=== PATIENT | male | born 1940 | race Caucasian/White ===

== ENCOUNTER 2019-01-06 16:53 | Inpatient (IN) | payer MEDICARE, OTHER ==
[~2019-01-06] VITALS: Ht 185.4 cm; Wt 65.8 kg
[~2019-01-06 16:53] MED LIST: ACET325T33 PO; ALFU10TA2 PO; AMLO2.5T78 PO; APIX2.5T PO; ATOR40TA68 PO; DORZ10DR5 BOTH EYES; ESCI20TA PO; ESCI20TA38 PO; FENO145T25 PO; FINA5TAB4 PO; FURO40TA4 PO; LEVO100T8 PO; MIRT15TA5 PO; MULT-552 PO; PANT40TA4 PO; REPA2TAB23 PO; SITA50TA2 PO; TRAV4OP25 BOTH EYES
[2019-01-06] MEDS ORDERED: SOD CHLORIDE 0.9% 1,000 ML IV STA (21:13)
[2019-01-07 03:23] VITALS: Ht 185.4 cm; Wt 65.8 kg
[2019-01-07 03:29] VITALS: BP 148/67; PULSE 70; RESP 16
[2019-01-07] MEDS ORDERED: DIPHENOXYLATE/ATROPINE TAB PO PRN (04:00)
[2019-01-07] MEDS ORDERED: NACL 0.9% 3 ML SYG IV SCH (04:00)
[2019-01-07] MEDS ORDERED: HYDROmorphONE 0.5 MG/0.5 ML SYG IV PRN (04:00)
[2019-01-07] MEDS ORDERED: HYDROCODONE/APAP (5/325) TAB PO PRN ×2 (04:00)
[2019-01-07] MEDS ORDERED: ACETAMINOPHEN 325 MG TAB PO PRN ×2 (04:00)
[2019-01-07] MEDS ORDERED: ONDANSETRON 4 MG INJ IV PRN ×2 (04:00)
[2019-01-07] MEDS ORDERED: ZOLPIDEM 5 MG TAB PO PRN (04:00)
[2019-01-07] MEDS: PANTOPRAZOLE (EC) 40 MG TAB PO SCH (05:39)
[2019-01-07] MEDS: SOD CHLORIDE 0.9% 1,000 ML IV SCH ×3 (05:40→23:53)
[2019-01-07] MEDS ORDERED: PANTOPRAZOLE (EC) 40 MG TAB PO SCH (07:00)
[2019-01-07] MEDS: INSULIN ASPART [NOVOLOG] 3 ML PEN SC SCH ×4 (08:00→20:35)
[2019-01-07 08:10] VITALS: BP 128/60; PULSE 56; RESP 18
[2019-01-07] MEDS: ESCITALOPRAM 10 MG TAB PO SCH (08:11)
[2019-01-07] MEDS: REPAGLINIDE 1 MG TAB PO SCH ×3 (08:11→20:31)
[2019-01-07] MEDS: MULTIVITAMINS THERAPEUTIC TAB PO SCH (08:12)
[2019-01-07] MEDS: FENOFIBRATE 145 MG TAB PO SCH (08:12)
[2019-01-07] MEDS: LINAGLIPTIN 5 MG TABLET PO SCH (08:12)
[2019-01-07] MEDS: AMLODIPINE 2.5 MG TAB PO SCH (08:13)
[2019-01-07] MEDS: HEPARIN 5,000 UNIT/1 ML VIAL SC SCH ×2 (08:17→20:34)
[2019-01-07] MEDS: DORZOLAMIDE 2% 10 ML OPH BOTH EYES SCH ×3 (09:00→20:32)
[2019-01-07] MEDS ORDERED: LACTATED RINGER'S 500 ML IV ONE ×2 (13:30→15:30)
[2019-01-07] MEDS: SACCHAROMYCES BOULARDII 250 MG CAP PO SCH ×2 (13:30→20:31)
[2019-01-07 14:37] VITALS: BP 118/57; PULSE 65; RESP 16
[2019-01-07] MEDS: FINASTERIDE 5 MG TAB PO SCH (16:41)
[2019-01-07] MEDS ORDERED: CIPROFLOXACIN 500 MG TAB PO ONE (18:30)
[2019-01-07 19:51] VITALS: BP 138/63; PULSE 62; RESP 16
[2019-01-07] MEDS: ATORVASTATIN 40 MG TAB PO SCH (20:31)
[2019-01-07] MEDS: MIRTAZAPINE 15 MG TAB PO SCH (20:31)
[2019-01-07] MEDS: ALFUZOSIN (SR) 10 MG TAB PO SCH (20:31)
[2019-01-07] MEDS: LATANOPROST 0.005% 2.5 ML OPH BOTH EYES SCH (20:32)
[2019-01-07] MEDS ORDERED: TRAVOPROST 0.004% 2.5 ML OPH BOTH EYES SCH (21:00)
[2019-01-08 01:48] VITALS: BP 116/56; PULSE 62; RESP 16
[2019-01-08] MEDS: SOD CHLORIDE 0.9% 1,000 ML IV SCH ×3 (03:01→12:48)
[2019-01-08] MEDS: LEVOTHYROXINE 100 MCG TAB PO SCH (05:28)
[2019-01-08] MEDS: PANTOPRAZOLE (EC) 40 MG TAB PO SCH (05:28)
[2019-01-08] MEDS: INSULIN ASPART [NOVOLOG] 3 ML PEN SC SCH ×4 (08:00→21:00)
[2019-01-08] MEDS: DORZOLAMIDE 2% 10 ML OPH BOTH EYES SCH ×3 (08:20→23:03)
[2019-01-08] MEDS: ESCITALOPRAM 10 MG TAB PO SCH (08:21)
[2019-01-08] MEDS: LINAGLIPTIN 5 MG TABLET PO SCH (08:21)
[2019-01-08] MEDS: REPAGLINIDE 1 MG TAB PO SCH ×3 (08:21→21:25)
[2019-01-08] MEDS: MULTIVITAMINS THERAPEUTIC TAB PO SCH (08:21)
[2019-01-08] MEDS: FENOFIBRATE 145 MG TAB PO SCH (08:21)
[2019-01-08] MEDS: SACCHAROMYCES BOULARDII 250 MG CAP PO SCH ×2 (08:21→21:24)
[2019-01-08] MEDS: FINASTERIDE 5 MG TAB PO SCH (08:21)
[2019-01-08] MEDS: HEPARIN 5,000 UNIT/1 ML VIAL SC SCH ×2 (08:28→21:28)
[2019-01-08 08:29] VITALS: BP 141/63; PULSE 63; RESP 18
[2019-01-08] MEDS: AMLODIPINE 2.5 MG TAB PO SCH (08:29)
[2019-01-08] MEDS ORDERED: POTASSIUM CHLORIDE (SR) 20 MEQ TAB PO STA (14:00)
[2019-01-08] MEDS ORDERED: LACTATED RINGER'S 500 ML IV ONE (14:00)
[2019-01-08] MEDS ORDERED: MAGNESIUM SULFATE 4 GM/100 ML 100 ML IVPB ONE (14:00)
[2019-01-08] MEDS ORDERED: PIPER-TAZO 3.375 GM IV (PMX) 100 ML IVPB ONE (14:00)
[2019-01-08] MEDS: CIPROFLOXACIN 500 MG TAB PO SCH (14:25)
[2019-01-08] MEDS: POTASSIUM CHLORIDE 100 ML IVPB SCH ×2 (15:49→23:05)
[2019-01-08 15:51] VITALS: BP 162/73; PULSE 60; RESP 18
[2019-01-08 19:26] VITALS: BP_SYST 146; BP_SYST 147; BP_DIAS 66; PULSE 65; RESP 17
[2019-01-08] MEDS: MIRTAZAPINE 15 MG TAB PO SCH (21:24)
[2019-01-08] MEDS: ALFUZOSIN (SR) 10 MG TAB PO SCH (21:24)
[2019-01-08] MEDS: LATANOPROST 0.005% 2.5 ML OPH BOTH EYES SCH (21:25)
[2019-01-08] MEDS: ATORVASTATIN 40 MG TAB PO SCH (21:25)
[2019-01-09 01:20] VITALS: BP 129/63; PULSE 61; RESP 18
[2019-01-09] MEDS: POTASSIUM CHLORIDE 100 ML IVPB SCH (02:32)
[2019-01-09] MEDS: SOD CHLORIDE 0.9% 1,000 ML IV SCH ×2 (05:53→17:45)
[2019-01-09] MEDS: PANTOPRAZOLE (EC) 40 MG TAB PO SCH (06:43)
[2019-01-09] MEDS: CIPROFLOXACIN 500 MG TAB PO SCH (06:43)
[2019-01-09] MEDS: LEVOTHYROXINE 100 MCG TAB PO SCH (06:43)
[2019-01-09 07:54] VITALS: BP 129/63; PULSE 64; RESP 18
[2019-01-09] MEDS: INSULIN ASPART [NOVOLOG] 3 ML PEN SC SCH ×4 (08:00→20:52)
[2019-01-09] MEDS: MULTIVITAMINS THERAPEUTIC TAB PO SCH (09:13)
[2019-01-09] MEDS: AMLODIPINE 2.5 MG TAB PO SCH (09:13)
[2019-01-09] MEDS: REPAGLINIDE 1 MG TAB PO SCH ×3 (09:13→20:51)
[2019-01-09] MEDS: FINASTERIDE 5 MG TAB PO SCH (09:14)
[2019-01-09] MEDS: ESCITALOPRAM 10 MG TAB PO SCH (09:14)
[2019-01-09] MEDS: FENOFIBRATE 145 MG TAB PO SCH (09:14)
[2019-01-09] MEDS: LINAGLIPTIN 5 MG TABLET PO SCH (09:14)
[2019-01-09] MEDS: SACCHAROMYCES BOULARDII 250 MG CAP PO SCH ×2 (09:14→20:51)
[2019-01-09] MEDS: DORZOLAMIDE 2% 10 ML OPH BOTH EYES SCH ×3 (09:16→20:51)
[2019-01-09] MEDS: HEPARIN 5,000 UNIT/1 ML VIAL SC SCH ×2 (09:16→20:54)
[2019-01-09] MEDS ORDERED: LACTATED RINGER'S 500 ML IV ONE (14:00)
[2019-01-09] MEDS: CEFTRIAXONE 1 GM/50 ML (PMX) 50 ML IVPB SCH (15:44)
[2019-01-09 16:07] VITALS: BP 130/78; PULSE 60; RESP 18
[2019-01-09 20:28] VITALS: BP 147/65; PULSE 80; RESP 18
[2019-01-09] MEDS: MIRTAZAPINE 15 MG TAB PO SCH (20:51)
[2019-01-09] MEDS: ALFUZOSIN (SR) 10 MG TAB PO SCH (20:51)
[2019-01-09] MEDS: LATANOPROST 0.005% 2.5 ML OPH BOTH EYES SCH (20:51)
[2019-01-09] MEDS: ATORVASTATIN 40 MG TAB PO SCH (20:51)
[2019-01-10] MEDS: SOD CHLORIDE 0.9% 1,000 ML IV SCH (01:53)
[2019-01-10] MEDS: LEVOTHYROXINE 100 MCG TAB PO SCH (06:46)
[2019-01-10] MEDS: PANTOPRAZOLE (EC) 40 MG TAB PO SCH (06:46)
[2019-01-10 07:42] VITALS: BP 161/67; PULSE 66; RESP 18
[2019-01-10] MEDS: INSULIN ASPART [NOVOLOG] 3 ML PEN SC SCH ×4 (08:00→20:45)
[2019-01-10] MEDS: DORZOLAMIDE 2% 10 ML OPH BOTH EYES SCH ×3 (09:15→20:43)
[2019-01-10] MEDS: AMLODIPINE 2.5 MG TAB PO SCH (09:16)
[2019-01-10] MEDS: MULTIVITAMINS THERAPEUTIC TAB PO SCH (09:16)
[2019-01-10] MEDS: REPAGLINIDE 1 MG TAB PO SCH ×3 (09:16→20:39)
[2019-01-10] MEDS: ESCITALOPRAM 10 MG TAB PO SCH (09:17)
[2019-01-10] MEDS: FINASTERIDE 5 MG TAB PO SCH (09:17)
[2019-01-10] MEDS: SACCHAROMYCES BOULARDII 250 MG CAP PO SCH ×2 (09:17→20:39)
[2019-01-10] MEDS: LINAGLIPTIN 5 MG TABLET PO SCH (09:17)
[2019-01-10] MEDS: FENOFIBRATE 145 MG TAB PO SCH (09:17)
[2019-01-10] MEDS: HEPARIN 5,000 UNIT/1 ML VIAL SC SCH ×2 (09:19→20:43)
[2019-01-10] MEDS: CEFTRIAXONE 1 GM/50 ML (PMX) 50 ML IVPB SCH (13:46)
[2019-01-10 13:57] VITALS: BP 155/70; PULSE 63; RESP 19
[2019-01-10 20:03] VITALS: BP 129/81; PULSE 66; RESP 18
[2019-01-10] MEDS: ATORVASTATIN 40 MG TAB PO SCH (20:39)
[2019-01-10] MEDS: MIRTAZAPINE 15 MG TAB PO SCH (20:39)
[2019-01-10] MEDS: ALFUZOSIN (SR) 10 MG TAB PO SCH (20:39)
[2019-01-10] MEDS: LATANOPROST 0.005% 2.5 ML OPH BOTH EYES SCH (23:47)
[2019-01-11 02:06] VITALS: BP 138/68; PULSE 61; RESP 19
[2019-01-11] MEDS: LEVOTHYROXINE 100 MCG TAB PO SCH (05:40)
[2019-01-11] MEDS: PANTOPRAZOLE (EC) 40 MG TAB PO SCH (05:40)
[2019-01-11 07:34] VITALS: BP 117/88; PULSE 71; RESP 19
[2019-01-11] MEDS: INSULIN ASPART [NOVOLOG] 3 ML PEN SC SCH ×4 (08:00→21:18)
[2019-01-11] MEDS: ESCITALOPRAM 10 MG TAB PO SCH (09:25)
[2019-01-11] MEDS: SACCHAROMYCES BOULARDII 250 MG CAP PO SCH ×2 (09:25→21:10)
[2019-01-11] MEDS: MULTIVITAMINS THERAPEUTIC TAB PO SCH (09:25)
[2019-01-11] MEDS: LINAGLIPTIN 5 MG TABLET PO SCH (09:26)
[2019-01-11] MEDS: REPAGLINIDE 1 MG TAB PO SCH ×3 (09:26→21:13)
[2019-01-11] MEDS: HEPARIN 5,000 UNIT/1 ML VIAL SC SCH (09:26)
[2019-01-11] MEDS: AMLODIPINE 2.5 MG TAB PO SCH (09:27)
[2019-01-11] MEDS: DORZOLAMIDE 2% 10 ML OPH BOTH EYES SCH ×3 (09:27→21:14)
[2019-01-11] MEDS: FENOFIBRATE 145 MG TAB PO SCH (09:28)
[2019-01-11] MEDS: FINASTERIDE 5 MG TAB PO SCH (09:28)
[2019-01-11] MEDS: CEFTRIAXONE 1 GM/50 ML (PMX) 50 ML IVPB SCH ×2 (14:14→14:26)
[2019-01-11 14:17] VITALS: BP 167/76; PULSE 65; RESP 18
[2019-01-11 19:48] VITALS: BP 121/57; PULSE 71; RESP 17
[2019-01-11] MEDS: LATANOPROST 0.005% 2.5 ML OPH BOTH EYES SCH (21:00)
[2019-01-11] MEDS: APIXABAN 5 MG TABLET PO SCH (21:10)
[2019-01-11] MEDS: ATORVASTATIN 40 MG TAB PO SCH (21:11)
[2019-01-11] MEDS: MIRTAZAPINE 15 MG TAB PO SCH (21:11)
[2019-01-11] MEDS: ALFUZOSIN (SR) 10 MG TAB PO SCH (21:14)
[2019-01-12 02:18] VITALS: BP 115/57; PULSE 71; RESP 18
[2019-01-12] MEDS: LEVOTHYROXINE 100 MCG TAB PO SCH (05:48)
[2019-01-12] MEDS: PANTOPRAZOLE (EC) 40 MG TAB PO SCH (05:48)
[2019-01-12 07:19] VITALS: BP 137/66; PULSE 70; RESP 18
[2019-01-12] MEDS: INSULIN ASPART [NOVOLOG] 3 ML PEN SC SCH ×4 (08:00→20:27)
[2019-01-12] MEDS: DORZOLAMIDE 2% 10 ML OPH BOTH EYES SCH ×3 (08:25→20:24)
[2019-01-12] MEDS: ESCITALOPRAM 10 MG TAB PO SCH (08:26)
[2019-01-12] MEDS: APIXABAN 5 MG TABLET PO SCH ×2 (08:26→20:25)
[2019-01-12] MEDS: FENOFIBRATE 145 MG TAB PO SCH (08:27)
[2019-01-12] MEDS: AMLODIPINE 2.5 MG TAB PO SCH (08:27)
[2019-01-12] MEDS: LINAGLIPTIN 5 MG TABLET PO SCH (08:28)
[2019-01-12] MEDS: FINASTERIDE 5 MG TAB PO SCH (08:28)
[2019-01-12] MEDS: MULTIVITAMINS THERAPEUTIC TAB PO SCH (08:32)
[2019-01-12] MEDS: SACCHAROMYCES BOULARDII 250 MG CAP PO SCH ×2 (08:32→20:25)
[2019-01-12] MEDS: REPAGLINIDE 1 MG TAB PO SCH (08:32)
[2019-01-12] MEDS: REPAGLINIDE 2 MG TAB PO SCH ×2 (13:51→20:25)
[2019-01-12] MEDS: CEFTRIAXONE 1 GM/50 ML (PMX) 50 ML IVPB SCH (13:52)
[2019-01-12 14:24] VITALS: BP 152/68; PULSE 65; RESP 18
[2019-01-12 20:00] VITALS: BP 158/74; PULSE 65; RESP 16
[2019-01-12] MEDS: ALFUZOSIN (SR) 10 MG TAB PO SCH (20:24)
[2019-01-12] MEDS: LATANOPROST 0.005% 2.5 ML OPH BOTH EYES SCH (20:24)
[2019-01-12] MEDS: MIRTAZAPINE 15 MG TAB PO SCH (20:25)
[2019-01-12] MEDS: ATORVASTATIN 40 MG TAB PO SCH (20:25)
[2019-01-13 02:00] VITALS: BP 140/67; PULSE 65; RESP 16
[2019-01-13] MEDS: LEVOTHYROXINE 100 MCG TAB PO SCH (05:37)
[2019-01-13] MEDS: PANTOPRAZOLE (EC) 40 MG TAB PO SCH (05:37)
[2019-01-13 07:58] VITALS: BP 139/66; PULSE 65; RESP 18
[2019-01-13] MEDS: INSULIN ASPART [NOVOLOG] 3 ML PEN SC SCH ×4 (08:00→21:00)
[2019-01-13] MEDS: APIXABAN 5 MG TABLET PO SCH ×2 (08:21→21:02)
[2019-01-13] MEDS: MULTIVITAMINS THERAPEUTIC TAB PO SCH (08:21)
[2019-01-13] MEDS: REPAGLINIDE 2 MG TAB PO SCH ×3 (08:21→21:02)
[2019-01-13] MEDS: ESCITALOPRAM 10 MG TAB PO SCH (08:21)
[2019-01-13] MEDS: SACCHAROMYCES BOULARDII 250 MG CAP PO SCH ×2 (08:21→21:02)
[2019-01-13] MEDS: LINAGLIPTIN 5 MG TABLET PO SCH (08:21)
[2019-01-13] MEDS: FENOFIBRATE 145 MG TAB PO SCH (08:21)
[2019-01-13] MEDS: FINASTERIDE 5 MG TAB PO SCH (08:22)
[2019-01-13] MEDS: AMLODIPINE 2.5 MG TAB PO SCH (08:22)
[2019-01-13] MEDS: DORZOLAMIDE 2% 10 ML OPH BOTH EYES SCH ×3 (08:24→21:00)
[2019-01-13] MEDS: CEFTRIAXONE 1 GM/50 ML (PMX) 50 ML IVPB SCH (13:20)
[2019-01-13 15:56] VITALS: BP 145/61; PULSE 66; RESP 16
[2019-01-13 20:00] VITALS: BP 123/60; PULSE 69; RESP 16
[2019-01-13] MEDS: LATANOPROST 0.005% 2.5 ML OPH BOTH EYES SCH (21:01)
[2019-01-13] MEDS: MIRTAZAPINE 15 MG TAB PO SCH (21:02)
[2019-01-13] MEDS: ALFUZOSIN (SR) 10 MG TAB PO SCH (21:02)
[2019-01-13] MEDS: ATORVASTATIN 40 MG TAB PO SCH (21:02)
== END 2019-01-13 22:14 | DRG 872 ==
LOC: E/R 16:53 → 2NE 23:41
PROVIDERS: ADMIT Internal Medicine; ATTEND Internal Medicine
DX: A41.9 Sepsis, unspecified organism (principal); N17.9 Acute kidney failure, unspecified; N39.0 Urinary tract infection, site not specified; I82.503 Chronic embolism and thrombosis of unspecified deep veins of lower extremity, bilateral; G95.9 Disease of spinal cord, unspecified; M48.54XA Collapsed vertebra, not elsewhere classified, thoracic region, initial encounter for fracture; I12.9 Hypertensive chronic kidney disease with stage 1 through stage 4 chronic kidney disease, or unspecified chronic kidney disease; E11.22 Type 2 diabetes mellitus with diabetic chronic kidney disease; E11.65 Type 2 diabetes mellitus with hyperglycemia; N18.3 Chronic kidney disease, stage 3 (moderate); E11.40 Type 2 diabetes mellitus with diabetic neuropathy, unspecified; K52.9 Noninfective gastroenteritis and colitis, unspecified; B96.4 Proteus (mirabilis) (morganii) as the cause of diseases classified elsewhere; B96.89 Other specified bacterial agents as the cause of diseases classified elsewhere; E86.0 Dehydration; E78.2 Mixed hyperlipidemia; E03.9 Hypothyroidism, unspecified; F32.9 Major depressive disorder, single episode, unspecified; F34.1 Dysthymic disorder; G47.00 Insomnia, unspecified; H40.9 Unspecified glaucoma; K21.9 Gastro-esophageal reflux disease without esophagitis; M54.12 Radiculopathy, cervical region; N40.0 Benign prostatic hyperplasia without lower urinary tract symptoms; Z79.01 Long term (current) use of anticoagulants; Z79.84 Long term (current) use of oral hypoglycemic drugs
CPT/HCPCS: 36415; 74176; 80048; 80053; 80061; 81001; 82962; 83036; 83690; 83735; 84100; 84443; 85025; 87045; 87075; 87086; 92526; 92610; 93922; 93970; 97110; 97162; 97530; J0696; J1644; J1815; J2543; J3480; J7030; J7120